=== PATIENT | female | born 2000 | race Caucasian/White ===

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

== ENCOUNTER 2022-05-04 10:37 | Emergency (ER) | payer OTHER, SELFPAY ==
[2022-05-04 10:44] VITALS: BP 117/69; PULSE 62; RESP 16; TEMP 36.9; O2SAT 100
--- NOTE | 2022-05-04 10:47 | ED.FEMALEGU ---
HPI - Female Genitourinary General Chief complaint: Urogenital-Female Stated complaint: uti symptoms Time Seen by Provider: 05/04/22 10:47 Source: patient and RN notes reviewed Mode of arrival: ambulatory Limitations: no limitations History of Present Illness HPI Narrative: 21 y/o female presented for c/o intense vaginal itching and white/orozco discharge for at least 2 weeks. Endorses fishy odor. She was in [place] when symptoms developed, she took Diflucan, but symptoms progressed. Obgyn sent additional diflucan and she used otc monistat without relief. Feels she cannot sleep due to the itching. Denies concern for STD, denies sexual activity after she was last tested. 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 She had also increased dose of acyclovir without change in symptoms. Denies any urinary complaints, vaginal bleeding, abdominal pain, nausea, vomiting, diarrhea, fevers or chills. No menstrual cycles with IUD. Related Data Home Medications Medication Instructions Recorded Confirmed nadolol 80 mg tablet 10/31/20 spironolactone 100 mg tablet 10/31/20 acyclovir 400 mg tablet tablet 05/04/22 bupropion HCl 150 mg tablet,12 hr tablet PO 05/04/22 sustained-release Allergies Allergy/AdvReac Type Severity Reaction Status Date / Time No Known Allergies Allergy Verified 10/31/20 14:54 Review of Systems Review of Systems: CONSTITUTIONAL: Denies body aches, fever, chills, or sweats. CARDIOVASCULAR: Denies chest pain, palpitations, or edema. RESPIRATORY: Denies cough or dyspnea. GASTROINTESTINAL: Denies abdominal pain, nausea, vomiting, or diarrhea. GENITOURINARY: denies dysuria, frequency, urgency, hematuria, flank pain reports vaginal discharge SKIN: Denies rash, itching, or wounds. MUSCULOSKELETAL: Denies back pain or myalgia. PENDING SALE TO [facility] Past Medical History Medical History Healthy female adult Surgical History Surgical History No history of previous surgery Family History Family History Father Hypertension Social History Social History Smoking status: Never smoker Second hand tobacco smoke exposure: No Alcohol intake: never Comments At time of signature, I have reviewed and agree with nursing past medical, surgical, social and family history unless otherwise noted. Please see nursing chart for further information. There is no relevant family history pertinent to the presenting complaint Exam Narrative: GENERAL: Well-appearing ENT: Mucous membranes pink and moist. CHEST: No respiratory distress. Clear to auscultation. HEART: Regular rate and rhythm. ABDOMEN: Soft, nontender, nondistended, normal active bowel sounds. 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 NEURO: No focal deficits. Alert and oriented x3. Gait steady. Course Course Emergency Course: Patient is aware of diagnosis, understands and agrees to treatment plan. Anticipatory guidance given. Patient agrees to follow-up as directed and is aware of reasons to seek care at the emergency department. Portions of this record may have been created with voice recognition software Level of Care: Express Care Visit Vital Signs Vital signs: Vital Signs Temperature 98.4 F 05/04/22 10:44 Pulse Rate 62 05/04/22 10:44 Respiratory Rate 16 05/04/22 10:44 Blood Pressure 117/69 05/04/22 10:44 Pulse Oximetry 100 05/04/22 10:44 Temperature 98.4 F 05/04/22 10:44 Pulse Rate 62 05/04/22 10:44 Respiratory Rate 16 05/04/22 10:44 Blood Pressure 117/69 05/04/22 10:44 Pulse Oximetry 100
--- NOTE | 2022-05-04 11:19 | PC.NURSE ---
Pelvic exam done per provider. No cultures obtained.
== END 2022-05-04 11:11 | disposition home or self-care (01) ==
PROVIDERS: Emergency Provider Nurse Practitioner Family
DX: N76.0 Acute vaginitis (principal)
CPT/HCPCS: 99213; G0463